=== PATIENT | male | born 1980 | race Caucasian/White ===

== ENCOUNTER 2022-06-06 10:08 | Emergency (ER) | payer SELFPAY ==
[~2022-06-06] VITALS: Ht 185.4 cm; Wt 86.2 kg
== END 2022-06-06 11:41 | disposition home or self-care (01) ==
LOC: ER 10:08
DX: S61.012A Laceration without foreign body of left thumb without damage to nail, initial encounter (principal); W26.0XXA Contact with knife, initial encounter
CPT/HCPCS: 12001; 99282